=== PATIENT | female | born 1965 | race Caucasian/White ===

== ENCOUNTER 2018-06-03 12:23 | Emergency (ER) | payer MEDICAID ==
[~2018-06-03] VITALS: Ht 160 cm; Wt 72.6 kg
--- NOTE | 2018-06-03 12:25 | NUR ---
Patient ambulated to bed 7 with family. RN evaluating patient at bedside.
--- NOTE | 2018-06-03 12:30 | NUR ---
52yo f bib for anxity. pt states chest discomfort, l arm burning 8/10 pain, x1.5hrs, and "blinking inside" while gesturing to head, wit naseua. pt denies v/d, cp, cough and fever at this time. pt skin is warm moist and appropriate color. will continue to monitor. er md made aware hx: none
[2018-06-03 12:31] VITALS: BP 147/85
--- NOTE | 2018-06-03 12:32 | NUR ---
Dr. Sinha evaluating patient at bedside.
[2018-06-03] MEDS ORDERED: NACL 0.9% 1,000 ML IV ONE (12:40)
[2018-06-03] MEDS ORDERED: ASPIRIN 325 MG TAB PO ONE (12:40)
--- NOTE | 2018-06-03 12:40 | NUR ---
PHLEB at bedside for blood draw.
[2018-06-03 12:59] LABS: BASOPHILS % (AUTO) 0.2 % (0.0-2.0); EOSINOPHILS # (AUTO) 0.1 K/uL (0-0.4); EOSINOPHILS % (AUTO) 1.6 % (0.0-4.0); HEMATOCRIT 42.5 % (36-48); HEMOGLOBIN 14.1 g/dL (12.0-16.0); LYMPHOCYTES # (AUTO) 3.4 K/uL (2.5-16.5); LYMPHOCYTES % (AUTO) 40.3 % (20.5-51.1); MEAN CORPUSCULAR HEMOGLOBIN 29 pg (27-31); MEAN CORPUSCULAR HGB CONC 33 g/dL (33-37); MEAN CORPUSCULAR VOLUME 85.5 fL (80-94); MONOCYTES # (AUTO) 0.5 K/uL (0.8-1.0); MONOCYTES % (AUTO) 6.2 % (1.7-9.3); NEUTROPHILS # (AUTO) 4.4 K/uL (1.8-7.7); NEUTROPHILS % (AUTO) 51.7 % (42.2-75.2); PLATELET COUNT (AUTO) 139 K/uL (140-450); RED BLOOD CELL COUNT(AUTO) 4.97 MIL/uL (4.20-5.40); RED CELL DISTRIBUTION WIDTH 13.5 % (11.6-13.7); WHITE BLOOD COUNT (AUTO) 8.5 K/uL (4.8-10.8)
[2018-06-03 13:08] LABS: ANION GAP 13.6 (8-16); CARBON DIOXIDE 26.8 mmol/L (21-32); CREATININE 0.9 mg/dL (0.6-1.3); POTASSIUM 3.4 mmol/L (3.5-5.1)
--- NOTE | 2018-06-03 13:08 | NUR ---
traffic analysis technician at bedside.
[2018-06-03 13:14] LABS: ALBUMIN 3.7 g/dL (3.4-5.0); TOTAL BILIRUBIN 0.2 mg/dL (0.0-1.0)
--- NOTE | 2018-06-03 13:24 | NUR ---
Dr. Sinha evaluating patient at bedside.
[2018-06-03] MEDS ORDERED: INSULIN REGULAR, HUMAN 100 UNIT/ML VIAL IV ONE (13:25)
[2018-06-03 14:15] LABS: APPEARANCE,URINE CLEAR (CLEAR); BILIRUBIN,URINE NEGATIVE (NEGATIVE); BLOOD, URINE NEGATIVE (NEGATIVE); COLOR,URINE YELLOW (YELLOW); LEUKOCYTE ESTERASE ,URINE NEGATIVE (NEGATIVE); NITRITE, URINE NEGATIVE (NEGATIVE); PH,URINE 5.5 (5.0-9.0); UGLUCOSE 3+ (NEGATIVE)
[2018-06-03 14:22] LABS: BARBITURATE, URINE NEG. ng/ml (NEG <=200); BENZODIAZEPINE, URINE NEG. ng/mL (NEG <=200); CANNABINOID, URINE NEG. ng/mL (NEG <=50); COCAINE, URINE NEG. ng/mL (NEG <=300); OPIATE, URINE NEG. ng/mL (NEG <=2000); PHENCYCLIDINE SCREEN,URINE NEG. ng/mL (NEG <=25)
[2018-06-03 14:45] VITALS: BP 126/69
--- NOTE | 2018-06-03 14:48 | NUR ---
Patient discharged with v/s stable. Written and verbal after care instructions given and explained. PT AVISED TO AVOID DRINKING CAFFEINE, AND COFFEE. Patient verbalized understanding. Ambulatory with steady gait. All questions addressed prior to discharge. Advised to follow up with PMD.
== END 2018-06-03 14:48 | disposition home or self-care (01) ==
LOC: MED 12:23
DX: F15.90 Other stimulant use, unspecified, uncomplicated (principal); R73.9 Hyperglycemia, unspecified; Z88.0 Allergy status to penicillin
CPT/HCPCS: 36415; 71045; 80053; 80305; 81003; 81025; 84484; 85025; 93005; 96374; 99285; J1815; Q0092

== ENCOUNTER 2019-04-27 22:32 | Emergency (ER) | payer MEDICAID, OTHER ==
[~2019-04-27] VITALS: Ht 160 cm; Wt 74.8 kg
[2019-04-27 22:34] VITALS: BP 130/85
--- NOTE | 2019-04-27 22:35 | NUR ---
PT AMBULATED TO ER BED 11
[2019-04-27] MEDS ORDERED: predniSONE 20 MG TAB PO ONE (22:40)
[2019-04-27] MEDS ORDERED: ALBUTEROL 0.083% 2.5 MG/3 ML NEBU INH ONE (22:40)
[2019-04-27] MEDS ORDERED: ALBUTEROL SULFATE/IPRATROPIU 3 ML SOL IH ONE (22:40)
--- NOTE | 2019-04-27 22:42 | NUR ---
PT TO ED WITH C/O SORE THROAT WITH SOB X 1400 TODAY. LUNG SOUNDS CTA BILATERALLY. NO S/S OF RESPIRTORY DISTRESS NOTED. PT ABLE TO SPEAK IN CLEAR SENTENCES WITHOUT DIFFICULTY. PT REPORTS HX OF ASTHMA BUT DENIES USE OF MEDICATION FOR RELIEF. PT PLACED INTO BED, ER MD AT BEDSIDE FOR EVAL.
[2019-04-27 23:06] VITALS: BP 130/85
--- NOTE | 2019-04-27 23:06 | NUR ---
PT REPORTS RELIEF OF SYMPTOMS S/P BREATHING TX.
--- NOTE | 2019-04-27 23:07 | NUR ---
Patient discharged with v/s stable. Written and verbal after care instructions given and explained. Patient alert, oriented and verbalized understanding of instructions. Ambulatory with steady gait. All questions addressed prior to discharge. ID band removed. Patient advised to follow up with PMD. Rx of PREDNISONE, ALBUTEROL given. Patient educated on indication of medication including possible reaction and side effects. Opportunity to ask questions provided and answered.
== END 2019-04-27 23:07 | disposition home or self-care (01) ==
LOC: MED 22:32
DX: R06.02 Shortness of breath (principal); J02.9 Acute pharyngitis, unspecified; R05 Cough; J45.909 Unspecified asthma, uncomplicated; Z90.49 Acquired absence of other specified parts of digestive tract; Z90.89 Acquired absence of other organs; Z88.0 Allergy status to penicillin
CPT/HCPCS: 94640; 99283; J7512; J7613; J7620

== ENCOUNTER 2019-07-06 14:05 | Emergency (ER) | payer OTHER ==
[~2019-07-06] VITALS: Ht 157.5 cm; Wt 79.6 kg
--- NOTE | 2019-07-06 14:15 | NUR ---
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 PER PT SHE PRE DIABETIC. ACCU CHECK 120. DENIES HX OR MEDICATION, PLACED ON MONITOR, EKG, DONE. WILL CONTINUE TO MONITOR
--- NOTE | 2019-07-06 14:17 | NUR ---
EKG AT BEDSIDE
[2019-07-06 14:23] VITALS: BP 127/78
--- NOTE | 2019-07-06 14:38 | NUR ---
PT STATES SHE IS FEELING NAUSEUS AT THIS TIME, PROVIDED HER WITH EMESIS BAG
--- NOTE | 2019-07-06 14:45 | NUR ---
dr. mclaughlin at bedside
[2019-07-06] MEDS: MECLIZINE 25 MG TAB PO ONE (14:56)
[2019-07-06] MEDS: KETOROLAC 60 MG/2 ML VIAL IM ONE (14:57)
[2019-07-06 15:22] VITALS: BP 127/78
--- NOTE | 2019-07-06 15:23 | NUR ---
Patient discharged with v/s stable. Written and verbal after care instructions given and explained. Patient alert, oriented and verbalized understanding of instructions. Ambulatory with steady gait. All questions addressed prior to discharge. ID band removed. Patient advised to follow up with PMD. Rx of prilosec, ibuprofen, meclizine given. Patient educated on indication of medication including possible reaction and side effects. Opportunity to ask questions provided and answered.
== END 2019-07-06 15:23 | disposition home or self-care (01) ==
LOC: MED 14:05
DX: R42 Dizziness and giddiness (principal); R10.13 Epigastric pain; J45.909 Unspecified asthma, uncomplicated; Z88.0 Allergy status to penicillin; Z90.710 Acquired absence of both cervix and uterus
CPT/HCPCS: 81002; 81025; 82948; 93005; 96372; 99283; J1885; J8597

== ENCOUNTER 2020-10-05 07:22 | Day surgery (SDC) | payer OTHER, SELFPAY ==
[~2020-10-05] VITALS: Ht 160 cm; Wt 79.4 kg
[2020-10-05] MEDS ORDERED: CLINDAMYCIN 600 MG in DEXTROSE 5% 50 ML IV SCH (07:40)
[2020-10-05] MEDS ORDERED: LIDOCAINE 1% 500 MG/50 ML VIAL ONE (09:36)
[2020-10-05] MEDS ORDERED: BUPIVACAINE-MPF 0.25% 30 ML VIAL INJ ONE (09:36)
[2020-10-05] MEDS ORDERED: HYDROcodone/APAP 5/325 MG 1 TAB TAB PO PRN (11:20)
[2020-10-05] MEDS ORDERED: ONDANSETRON 4 MG/2 ML VIAL IV PRN (11:20)
[2020-10-05] MEDS ORDERED: MORPHINE SULFATE 4 MG/ML SYR IV PRN (11:20)
[2020-10-05] MEDS ORDERED: MORPHINE SULFATE 2 MG/ML SYR IVP PRN (11:20)
[2020-10-05] MEDS ORDERED: HYDROmorphone 1 MG/ML AMP IVP PRN (11:20)
[2020-10-05] MEDS ORDERED: ePHEDrine 50 MG/ML VIAL ONE (15:05)
[2020-10-05] MEDS ORDERED: HYDROmorphone PFS 2 MG/ML SYR ONE (15:05)
[2020-10-05] MEDS ORDERED: METOCLOPRAMIDE 10 MG/2 ML INJ VIAL ONE (15:05)
[2020-10-05] MEDS ORDERED: PROPOFOL 200 MG/20 ML VIAL IV ONE (15:05)
[2020-10-05] MEDS ORDERED: DEXAMETHASONE 4 MG/ML VIAL ONE (15:05)
[2020-10-05] MEDS ORDERED: ONDANSETRON 4 MG/2 ML VIAL ONE (15:05)
== END 2020-10-05 13:30 | disposition home or self-care (01) ==
LOC: MDS 07:22 → MMU 07:23 → MDS 13:30
PROVIDERS: ATTEND Surgery
DX: Z45.811 Encounter for adjustment or removal of right breast implant (principal); Z45.812 Encounter for adjustment or removal of left breast implant; N64.4 Mastodynia; Z90.710 Acquired absence of both cervix and uterus; Z98.890 Other specified postprocedural states; Z20.828 Contact with and (suspected) exposure to other viral communicable diseases
CPT/HCPCS: 19328; 71046; J1100; J1170; J2001; J2405; J2704; J2765; J3490; J7060; J7120; U0003; 88300

== ENCOUNTER 2023-04-09 10:52 | Emergency (ER) | payer OTHER ==
[~2023-04-09] VITALS: Ht 160 cm; Wt 78.0 kg
[2023-04-09 11:04] VITALS: BP 133/86
--- NOTE | 2023-04-09 11:12 | NUR ---
TO CHAIR FOR ERMD EVAL. COMFORT MEASURES AND SUPPORTIVE CARE INITIATED.
[2023-04-09] MEDS ORDERED: LIDOCAINE 1% 500 MG/ 50 ML VIAL INJ ONE (11:30)
[2023-04-09] MEDS ORDERED: LIDOCAINE MPF 1% 5 ML ONE (11:50)
[2023-04-09] MEDS ORDERED: LIDOCAINE MPF 1% 10 MG/ML VIAL INJ ONE (11:55)
[2023-04-09] MEDS ORDERED: IBUPROFEN 800 MG TAB PO ONE (12:10)
[2023-04-09] MEDS ORDERED: LIDOCAINE 5% 1 EA PATCH TP SCH (12:50)
--- NOTE | 2023-04-09 13:22 | NUR ---
Patient discharged with v/s stable. Written and verbal after care instructions ABOUT LACERATION given and explained. Patient verbalized understanding. Ambulatory with steady gait. All questions addressed prior to discharge. Advised to follow up with PMD.
[2023-04-10] MEDS ORDERED: LIDOCAINE 5% 1 EA PATCH TP SCH (09:00)
== END 2023-04-09 13:22 | disposition home or self-care (01) ==
LOC: MED 10:52
DX: S01.111A Laceration without foreign body of right eyelid and periocular area, initial encounter (principal); Z88.0 Allergy status to penicillin; Z79.899 Other long term (current) drug therapy; W01.0XXA Fall on same level from slipping, tripping and stumbling without subsequent striking against object, initial encounter; Y93.89 Activity, other specified; Y92.89 Other specified places as the place of occurrence of the external cause; Y99.8 Other external cause status
CPT/HCPCS: 12011; 90471; 90715; 99283; J2001

== ENCOUNTER 2023-04-15 11:26 | Emergency (ER) | payer OTHER ==
[~2023-04-15] VITALS: Ht 160 cm; Wt 79.2 kg
[2023-04-15 11:33] VITALS: BP 118/72
[2023-04-15 11:50] VITALS: BP 118/72
--- NOTE | 2023-04-15 11:50 | NUR ---
Patient discharged with v/s stable. Written and verbal after care instructions given and explained. Patient verbalized understanding. Ambulatory with steady gait. All questions addressed prior to discharge. Advised to follow up with PMD.
== END 2023-04-15 11:50 | disposition home or self-care (01) ==
LOC: MED 11:26
DX: S01.111D Laceration without foreign body of right eyelid and periocular area, subsequent encounter (principal); Z48.02 Encounter for removal of sutures; J45.909 Unspecified asthma, uncomplicated; Z88.0 Allergy status to penicillin; W18.39XD Other fall on same level, subsequent encounter
CPT/HCPCS: 99281

== ENCOUNTER 2024-06-29 17:47 | Emergency (ER) | payer OTHER ==
[~2024-06-29] VITALS: Ht 160 cm; Wt 79.4 kg
[2024-06-29 17:52] VITALS: BP 154/70; PULSE 90; RESP 22; TEMP 98.5; O2SAT 98
[2024-06-29 18:23] LABS: EOSINOPHILS # (AUTO) 0.1 K/uL (0-0.4); EOSINOPHILS % (AUTO) 1.1 % (0.0-4.0); HEMOGLOBIN 13.2 g/dL (12.0-16.0); LYMPHOCYTES # (AUTO) 3.6 K/uL (2.5-16.5); MEAN CORPUSCULAR HEMOGLOBIN 28 pg (27-31); MEAN CORPUSCULAR HGB CONC 33 g/dL (33-37); MEAN CORPUSCULAR VOLUME 83.7 fL (80-94); MONOCYTES # (AUTO) 0.7 K/uL (0.8-1.0); MONOCYTES % (AUTO) 7.2 % (1.7-9.3); NEUTROPHILS # (AUTO) 5.4 K/uL (1.8-7.7); NEUTROPHILS % (AUTO) 54.7 % (42.2-75.2); PLATELET COUNT (AUTO) 224 K/uL (140-450); RED BLOOD CELL COUNT(AUTO) 4.79 MIL/uL (4.20-5.40); RED CELL DISTRIBUTION WIDTH 13.4 % (11.6-13.7); WHITE BLOOD COUNT (AUTO) 9.8 K/uL (4.8-10.8)
[2024-06-29 18:27] LABS: APPEARANCE,URINE CLEAR (CLEAR); BILIRUBIN,URINE NEGATIVE (NEGATIVE); BLOOD, URINE 1+ (NEGATIVE); COLOR,URINE YELLOW (YELLOW); LEUKOCYTE ESTERASE ,URINE TRACE (NEGATIVE); NITRITE, URINE NEGATIVE (NEGATIVE); PROTEIN,URINE NEGATIVE (NEGATIVE); UGLUCOSE NEGATIVE (NEGATIVE); UROBILINOGEN,URINE 0.2 EU/dL (0.2 - 1)
[2024-06-29 18:40] LABS: BACTERIA,URINE OCCASSIONAL /HPF (None Seen); RBC,URINE 0-5 /HPF (0-5); SQUAMOUS EPITHELIAL CELL,UR 0-3 (FEW) /LPF (0-3 (FEW)); WBC,URINE 0-5 /HPF (0-5)
[2024-06-29 18:41] LABS: ANION GAP 14.8 (8-16); CALCIUM 9.2 mg/dL (8.5-10.1); CARBON DIOXIDE 25.7 mmol/L (21-32); CREATININE 0.7 mg/dL (0.6-1.3); POTASSIUM 3.5 mmol/L (3.5-5.1)
[2024-06-29 18:47] LABS: ALBUMIN 3.9 g/dL (3.4-5.0); BILIRUBIN,DIRECT 0.1 mg/dL (0.0-0.3); TOTAL BILIRUBIN 0.4 mg/dL (0.0-1.0); TOTAL PROTEIN, SERUM 7.4 g/dL (6.4-8.2)
[2024-06-29] MEDS: ACETAMINOPHEN EXTRA STRENGTH 500 MG TAB PO ONE (18:47)
[2024-06-29] MEDS: ONDANSETRON 4 MG/2 ML VIAL IVP ONE (18:47)
[2024-06-29] MEDS: KETOROLAC 30 MG/ML VIAL IVP ONE (18:47)
[2024-06-29 19:58] VITALS: BP 136/88; PULSE 78; RESP 16; TEMP 98.1; O2SAT 96
[2024-06-29] MEDS ORDERED: ONDA-188 PO (20:18)
== END 2024-06-29 20:28 | disposition home or self-care (01) ==
LOC: MED 17:47
DX: R10.31 Right lower quadrant pain (principal); R11.0 Nausea; R19.7 Diarrhea, unspecified; J45.909 Unspecified asthma, uncomplicated; Z90.710 Acquired absence of both cervix and uterus; Z79.2 Long term (current) use of antibiotics; Z98.890 Other specified postprocedural states; Z88.0 Allergy status to penicillin
CPT/HCPCS: 36415; 74176; 80048; 80076; 81001; 83690; 85025; 96374; 96375; 99285; J1885; J2405